=== PATIENT | male | born 1955 | race Caucasian/White ===

== ENCOUNTER → 2017-12-29 09:28 | Outpatient (CLI) | payer MEDICARE ==
[~2017-12-29] VITALS: Ht 172.7 cm; Wt 102.7 kg
--- NOTE | ~2017-12-29 | HEMODYNAMI ---
PATIENT:GABRIELA SHERWOOD MEDICAL RECORD: [id number] : 53 LOCATION:[facility] ADMISSION DATE: 12/29/17 Generatedon:12/29/201715:33 Patient name: GABRIELA SHERWOOD Patient #: [id number] SSN: DO B: 1955 Date of study: 12/29/2017 Page: Of Hemodynamic Procedure Report Patient Data Patient Demographics Procedure consent was obtained First Name: GABRIELA Gender: Male Last Name: KAELA : 1955 Patient #: [id number] Age: 62 year(s) Race: Unknown Additional ID: [id number] Contact details [address]: [address] [place] [address] State: [place] City: [place] Zip code: [address] Past Medical History Allergies Allergen Reaction Date Comments Reported Other allergy 12/29/2017 N Admission Admission Data Admission Date: 12/29/2017 Admission Time: 9:28 Admit Source: Other Lab Results Lab Result Date: 12/29/2017 Lab Result Time: 10:35 Biochemistry Name Units Result Min Max BUN mg/dl 14 --(--*-)-- 7 18 Creatinine mg/dl 0.8 --(-*--)-- 0.6 1.3 CBC Name Units Result Min Max Hematocrit % 46.9 --(-*--)-- 42 54 Hemoglobin g/dl 16.6 --(---*)-- 13.5 17.5 Procedure Procedure Types Cath Procedure Diagnostic Procedure LHC LHC w/Coronaries Procedure Description Procedure Date Procedure Date: 12/29/2017 Procedure Start Time: 15:17 Procedure End Time: 15:28 Procedure Staff Name Function Kye Crawford MD Performing Physician Sheldon Ko RT Monitor Ivy Wood RT Scrub Kaylah Kirk RN Nurse Procedure Data Cath Procedure Fluoroscopy Diagnostic fluoroscopy Total fluoroscopy Time: 4 time: 4 min min Diagnostic fluoroscopy Total fluoroscopy dose: 710 dose: 710 mGy mGy Contrast Material Contrast Material Type Amount (ml) Isovue 300 62 Entry Location Entry Primary Successful Side Size Upsize Upsize Entry Closure Catsrejon ccessful Closure Location (Fr) 1 (Fr) 2 (Fr) Remarks Device Remarks Radial Right 6 Fr Mechanical artery Short Compression Estimated blood loss: 5 ml Diagnostic catheters Device Type Used For End Catheter Placement DIAGNOSTIC Shashank 110cm Procedure 5Fr catheter ([id number]) Procedure Complications No complications Procedure Medications Medication Administration Route Dosage 0.9% NaCl I.V. 100 ml/hr Oxygen etCO2 Nasal cannula 2 l/min Lidocaine 2% added to field 20 Heparin Flush Bag added to field 2 bags (1000units/500ml NS) Radial Cocktail added to field 1 syringe (Verapomil 2mg/Nitro 400mcg/Heparin 1500units) Versed I.V. 2 mg Fentanyl I.V. 50 mcg Versed I.V. 1 mg Hemodynamics Rest HGB: 16.6 (g/dl) Heart Rate: 50 (bpm) Pressure Samples Time Site Value (mmHg) Purpose Heart Use Rate(bpm) 15:21 LV 136/8,16 Snapshot 70 15:22 AO 116/75(95) Pullback 70 15:22 LV 120/18,13 Pullback 70 Gradients Valve Time Site 1 Site 2 Mean SEP/DFP Peak To Heart Use (mmHg) (sec/min) Peak Rate (mmHg) (bpm) Aortic 15:22 LV AO 9 5 4 70 120/18,13 116/75(95) Calculations Valve P-P Mean Valve Index Valve Source Name Gradient Area Flow (cm2) Aortic 4 9 4 9 Snapshots Pre Cath Intra NCS Post Cath Vital Signs Time Heart Resp SPO2 etCO2 NIBP (mmHg) Rhythm Pain Sedation Rate (ipm) (%) (mmHg) Status Level (bpm) 15:07:00 48 16 100 33.7 187/107(171) SB 0 (11) 10(A) , No pain 15:11:36 51 15 100 29.9 159/105(146) SB 0 (11) 10(A) , No pain 15:16:07 52 15 100 23.9 146/96(118) SB 0 (11) 10(A) , No pain 15:20:26 66 13 97 23.2 123/78(99) NSR 0 (11) 9(A) , No pain 15:24:45 59 14 97 32.9 121/80(99) SB 0 (11) 9(A) , No pain 15:29:07 52 15 98 17.2 135/75(105) SB 0 (11) 10(A) , No pain Medications Time Medication Route Dose Verified Delivered Reason Notes E ffectiveness by by 15:09:21 0.9% NaCl I.V. 100 Kye Kaylah used for ml/hr Ty Kirk service consultant 15:09:28 Oxygen etCO2 2 l/min Kye Kaylah used for Nasal Ty Kirk procedure cannula RN 15:09:33 Lidocaine 2% added 20ml Kye Kye for local to vial Ty Crawford MD anesthetic field 15:09:39 Heparin Flush added 2 bags Kye Kye used for Bag to Ty Crawford MD procedure (1000units/500ml field NS) 15:10:28 Radial Cocktail added 1 Kye Kye used for (Verapomil to syringe Ty Crawford MD procedure 2mg/Nitro field 400mcg/Heparin 1500units) 15:13:33 Versed I.V. 2 mg Kye Kaylah for Ty Kirk sedation RN 15:13:39 Fentanyl I.V. 50 mcg Kye Kaylah for Ty Kirk sedation RN 15:19:30 Versed I.V. 1 mg Kye Kaylah for Ty Kirk sedation cdl driver Log Time Note 14:49:40 Informed consent obtained and on chart 14:49:43 Admit Source: Other 14:49:56 Diagnostic Cath status Elective 14:49:57 Time tracking: Regular hours (M-F 7:00 - 5:00) 14:50:00 Plan of Care:Hemodynamics will remain stable., Cardiac rhythm will remain stable., Comfort level will be maintained., Respiratory function will remain adequate., Patient/ family verbilizes understanding of procedure., Procedure tolerated without complication., Recovers from procedure without complications.. 14:50:10 H&P Date Dictated: 12/15/2017 Within 30 days and on chart., H&P Addendum completed by physician on day of procedure. (MUST COMPLETE FOR ALL OUTPATIENTS). 14:51:14 Lab Result : BUN 14 mg/dl 14:51:14 Lab Result : Creatinine 0.8 mg/dl 14:51:14 Lab Result : Hemoglobin 16.6 g/dl 14:51:14 Lab Result : Hematocrit 46.9 % 14:51:17 Lab results completed and on chart. 14:52:14 Kaylah Kirk RN sent for patient. Start room use. 14:57:56 Patient received from Pre/Post Procedure Room to CCL 1 Alert and oriented. Tansferred to table in Supine position. 14:57:57 Warm blankets applied, and claudia hugger turned on for patient comfort. 14:57:58 Correct patient and procedure confirmed by team. 14:57:58 ECG and BP/O2 sat monitors applied to patient. 14:57:59 Pre-procedure instructions explained to patient. 14:58:00 Pre-op teaching completed and patient verbalized understanding. 14:58:01 Family in waiting room. 14:58:02 Patient NPO since Breakfast. 15:04:15 Vital chart was started 15:09:21 0.9% NaCl 100 ml/hr I.V. was administered by Kaylah Kirk RN; used for procedure; 15:09:26 Patient allergic to Other allergyPCN 15:09:28 Oxygen 2 l/min etCO2 Nasal cannula was administered by Kaylah Kirk RN; used for procedure; 15:09:33 Lidocaine 2% 20ml vial added to field was administered by Kye Crawford MD; for local anesthetic; 15:09:34 Baseline sample Acquired. 15:09:39 Heparin Flush Bag (1000units/500ml NS) 2 bags added to field was administered by Kye Crawford MD; used for procedure; 15:09:39 Rhythm: sinus rhythm 15:09:41 Full Disclosure recording started 15:09:44 Is the patient allergic to Iodine/contrast media? No. 15:10:00 Is patient on blood thinner?No 15:10:01 Patient diabetic? Yes. 15:10:02 If diabetic: On Metformin? Yes 15:10:08 If on Metformin: Last Dose? 12/22/2017 15:10:11 Previous problem with sedation/anesthesia? No ? 15:10:11 Snore? Yes 15:10:15 Sleep apnea? No 15:10:16 Deviated septum? No 15:10:17 Opens mouth fully? Yes 15:10:17 Sticks out tongue? Yes 15:10:19 Airway obstruction? No ? 15:10:22 Dentures? No ? 15:10:28 Radial Cocktail (Verapomil 2mg/Nitro 400mcg/Heparin 1500units) 1 syringe added to field was administered by Kye Crawford MD; used for procedure; 15:11:30 Modified Micheal's test Ulnar < 7 seconds 15:11:35 Patient pain scale 0/10 ?. 15:12:10 IV patent on arrival in left forearm with 0.9% NaCl at [facility]. 15:12:15 Right Radial & Right Groin area was prepped with chlora-prep and draped in sterile fashion 15:12:16 Alarms reviewed by R. N. 15:12:16 Sharps counted by scrub and verified by R.N. 15:12:20 Use device set Radial Dx or PCI 15:12:21 ACIST Syringe (66225) opened to sterile field. 15:12:22 Medline Cath Pack ([id number]) opened to sterile field. 15:12:22 Bag Decanter (2002S) opened to sterile field. 15:12:23 ACIST Manifold (88202) opened to sterile field. 15:12:24 ACIST Hand Control (52793) opened to sterile field. 15:12:24 Tegaderm 4 x 4 (1626W) opened to sterile field. 15:12:25 MBrace Wrist Support ([id number]) opened to sterile field. 15:12:27 DIAGNOSTIC WIRE .035 260cm J wire (930017) opened to sterile field. 15:12:34 SHEATH 6FR Slender ([id number]) opened to sterile field. 15:12:44 Physician arrived 15:12:44 --------ALL STOP TIME OUT------ 15:12:45 Final Timeout: patient, procedure, and site verified with staff and physician. All members of the team are in agreement. 15:12:47 Right Radial & Right Groin site verified by team. 15:12:50 Physical assessment completed. ASA score P 2 - A patient with mild systemic disease as per Kye Crawford MD. 15:12:52 Sedation plan: IV Moderate Sedation Medication:Versed, Fentanyl 15:13:33 Versed 2 mg I.V. was administered by Kaylah Kirk RN; for sedation; 15:13:39 Fentanyl 50 mcg I.V. was administered by Kaylah Kirk RN; for sedation; 15:17:30 Procedure started. 15:17:33 Local anesthetic to right radial artery with Lidocaine 2% by Kye Crawford MD.INITIAL ACCESS ONLY 15:17:39 Zero performed for pressure channel P1 15::56 A 6 Fr Short sheath was inserted into the Right Radial artery 15:18:09 A DIAGNOSTIC Shashank 110cm 5Fr catheter ([id number]) was advanced over the wire and used for Procedure. 15:19:30 Versed 1 mg I.V. was administered by Kaylah Kirk RN; for sedation; 15::53 LV gram done using BISHOP 15::56 Injector settings: Ml/sec: 5, Volume: 15., 15:21:57 LV hemodynamics recorded. 15:22:18 EF : 45 % 15::18 RCA angiography performed. 15:24:08 LCA angiography performed. 15:25:07 Catheter removed. 15:25:10 TR BAND Standard ([id number]) opened to sterile field. 15:25:17 Sheath removed intact; hemostasis achieved with Mechanical Compression to the Right Radial artery. 15::18 Procedure ended.(Physican Out) 15:26:40 Fluoroscopy time 04.00 minutes. 15:26:44 Fluoroscopy dose: 710 mGy 15:26:44 Flurop Dose total: 710 15:26:46 Contrast amount:Isovue 300 62ml. 15:26:49 Sharps counted by scrub and verified by R.N. 15:26:52 TR band inflated with 12cc of air. 15:26:53 Insertion/operative site no bleeding no hematoma. 15:26:56 Post Procedure Pulses reassessed and unchanged 15::58 Post-procedure physical assessment completed. ASA score P 2 - A patient with mild systemic disease as per Kye Crawford MD. 15:27:00 Post procedure rhythm: unchanged. 15:27:02 Estimated blood loss: 5 ml 15:27:03 Post procedure instruction explained to patient.Patient verbalizes understanding. 15:27:04 Patient needs reinforcement of post procedure teaching. 15:28:07 Procedure Complication : No complications 15:28:09 Vital chart was stopped 15:28:10 See physician's report for complete and final results. 15:28:12 Report given to Pre/Post Procedure Room. 15:28:17 Patient transfered to Pre/Post Procedure Room with Stretcher. ::19 Procedure ended. 15:28:19 Full Disclosure recording stopped 15:28:24 End room use (Document Last) Device Usage Item Name Manufacture Quantity Catalog Hospital Part Current Minima l Lot# / Number Charge Number Stock Stock Serial# Code ACIST Acist 1 84769 448642 472879 857728 20 Syringe Medical (10251) Systems Inc Medline Cath Medline 1 [id number] 497237 37202 963140 5 Pack ([id number]) Bag Decanter Microtek 1 2001S 142847 28095 456732 5 (2001S) Medical Inc. ACIST Acist 1 06859 324645 798207 639459 5 Manifold Medical (08056) Systems Inc ACIST Hand Acist 1 89347 915020 443678 205173 5 Control Medical (92410) Systems Inc Tegaderm 4 x 3M 1 1626W 130782 412470 059497 5 4 (1626W) MBrace Wrist Advanced 1 140-0250-00 753242 38907 664160 5 Support Vascular ([id number]) Dynamics DIAGNOSTIC [place] 1 319396 238773 277250 540758 30 WIRE .035 260cm J wire (569225) SHEATH 6FR Terumo 1 [id number] 163290 132629 206953 40 Slender ([id number]) DIAGNOSTIC Terumo 1 40-8592 041348 457862 792403 5 Shashank 110cm 5Fr catheter (905571) TR BAND Terumo 1 [id number] 832314 876766 146524 40 Standard ([id number]) Signature Audit [place] Stage Time Signature Unsigned Intra-Procedure 12/29/2017 Sheldon Ko 3:33:09 PM RT(R) Signatures Monitor : Sheldon Ko RT Signature : Date : Time : [facility] [address] [facility] [place] [address]
[~2017-12-29 09:28] MED LIST: BAYER CHEWABLE81 MG PO; CHLORTHALIDONE25 MG PO; FISH OIL 1,0001 CA1; GLIPIZIDE10 MG PO; K-DUR20 MEQ PO; NORVASC10 MG PO; STOOL SOFTENER100 M1 PO
[2017-12-29 10:36] VITALS: BP 191/103; Ht 172.7 cm; Wt 102.7 kg
[2017-12-29 10:58] LABS: BASOPHILS 0.6 % (0-2); EOSINOPHILS 1.7 % (0-7); HEMATOCRIT 46.9 % (42.0-54.0); HEMOGLOBIN 16.6 g/dL (13.5-17.5); LYMPHOCYTES 30.2 % (15-50); MCHC 35.4 g/dL (31.0-37.0); MCV 87.7 fL (80.0-100.0); MEAN PLATELET VOLUME 10.9 fL (7.4-10.4); NEUTROPHILS 57.5 % (40-80); PLATELET COUNT 107 10x3/uL (130-400); RBC 5.35 10x6/uL (4.20-6.10); RDW 12.9 % (11.5-14.5); WBC 4.7 10x3/uL (4.8-10.8)
[2017-12-29 12:04] LABS: CALC OSMOLALITY 285 mosm/kg (275-300); CALCIUM 8.1 mg/dL (8.5-10.1); CARBON DIOXIDE 26.1 mmol/L (21.0-32.0); CHLORIDE - SERUM 102 mmol/L (98-107); CREATININE - SERUM 0.8 mg/dL (0.6-1.3); GLUCOSE 295 mg/dL (74-106); POTASSIUM - SERUM 3.6 mmol/L (3.5-5.1); SODIUM 137 mmol/L (136-145); UREA NITROGEN 14 mg/dL (7-18); eGFR NON AFRICAN AMERICAN > 90 mL/min (90-120)
== END | disposition home or self-care (01) ==
LOC: D.CATH 09:28
PROVIDERS: Internal Medicine Cardiovascular Disease
DX: I20.9 Angina pectoris, unspecified (principal); Z01.812 Encounter for preprocedural laboratory examination

== ENCOUNTER → 2020-06-14 08:53 | Outpatient (CLI) | payer MEDICARE ==
[2017-12-29 10:36] VITALS: BMI 34.4
== END | disposition home or self-care (01) ==
LOC: D.HCCECHO 08:53
PROVIDERS: ATTEND Internal Medicine Cardiovascular Disease
DX: I10 Essential (primary) hypertension (principal)